=== PATIENT | male | born 1965 | race Caucasian/White ===

== ENCOUNTER 2016-10-03 06:25 | Emergency (ER) | payer OTHER ==
--- NOTE | 2016-10-03 07:01 | DIAGNOSTIC IMAGING REPORT ---
PROCEDURE: CT HEAD WITHOUT CONTRAST INDICATION: VERTIGO/DIZZINESS TECHNIQUE: Noncontrast axial images with sagittal and coronal reformations. COMPARISON: None. FINDINGS: Moderate bilateral temporal lobe atrophy. 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 Normal ventricular system and white matter. No evidence of acute intracranial process. Visualized mastoids and sinuses are clear. IMPRESSION: 1. No acute intracranial abnormality 2. Moderate bilateral temporal lobe atrophy 3. 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 Findings discussed with Dr. Dodd at 06:57 a.m.[facility] Time
--- NOTE | 2016-10-03 07:01 | DIAGNOSTIC IMAGING REPORT ---
PROCEDURE: CT HEAD WITHOUT CONTRAST INDICATION: VERTIGO/DIZZINESS TECHNIQUE: Noncontrast axial images with sagittal and coronal reformations. COMPARISON: None. FINDINGS: Moderate bilateral temporal lobe atrophy. 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 Normal ventricular system and white matter. No evidence of acute intracranial process. Visualized mastoids and sinuses are clear. IMPRESSION: 1. No acute intracranial abnormality 2. Moderate bilateral temporal lobe atrophy 3. 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 Findings discussed with Dr. Dodd at 06:57 a.m.[facility] Time
--- NOTE | 2016-10-03 07:26 | DIAGNOSTIC IMAGING REPORT ---
PROCEDURE: XR CHEST 1 VIEW INDICATION: SHORTNESS OF BREATH TECHNIQUE: Portable AP view 07:03 a.m. COMPARISON: None. FINDINGS: Mild right basilar infiltrate and small right pleural effusion. Small medial right upper lobe infiltrate versus summation artifact. Left lung is clear. Heart size, mediastinum and pulmonary vessels are normal. Thorax is normal. IMPRESSION: 1. Right basilar infiltrate and right pleural effusion 2. Small medial right upper lobe infiltrate versus summation artifact.
--- NOTE | 2016-10-03 09:57 | ED NURSING NOTES ---
Clinical Report - [facility] [address] [place] [address] 10/03/2016 6:27 Patient: RYAN ARNOLD TRIAGE Triage time 06:20 Oct 03 2016. Acuity: LEVEL 3. Chief Complaint: DIZZINESS and LIGHT HEADED. Alert. KATHARINA COMA SCORE: Katharina Coma Scale: 15- eyes open spontaneously (4); best verbal response- oriented x 4 (5); best motor response- obeys commands (6). --06:48 Miguel Danielle R.N. 06:26 10/03/16. BP: 110/90. HR: 120. RR: 18. Temp: 98.3 F (oral). Pain level now: 04/10. 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 --06:48 Miguel Danielle R.N. 06:26 10/03/16. O2 saturation: 99% on room air. --07:13 Miguel Danielle R.N. Weight: 97.5 kg stated. Height/Length: 72 inches Per Patient. BMI: 29.2. --06:47 Miguel Danielle R.N. Medications Dantrolene Sodium Oral (Capsule 25 mg) 1-2 caps, 3-4 times daily (Muscle Spasms). Gabapentin Oral 300 mg, 3x a day. Omeprazole Oral 20 mg. Ranitidine HCl Oral 150 mg, 2x a day. --06:37 Miguel Danielle R.N. Amitriptyline HCl Oral. Psyllium Oral. Topiramate ER Oral. --06:37 Miguel Danielle R.N. Aspirin Oral (Tablet 325 mg) 1 tablet, daily. --06:37 Miguel Danielle R.N. OxyCODONE HCl Oral 5 mg 1/2 tab, 3x a day as needed (stopped this Rx 4 days ago). --06:38 Miguel Danielle R.N. The following entry was struck and corrected by Miguel Danielle R.N., 06:46 (10/03/16) Reason for correction - other(correction). <<STRICKEN ENTRY-- Omeprazole Oral. --06:37 Miguel Danielle R.N. --END STRIKE>> The following entry was struck and corrected by Miguel Danielle R.N., 06:46 (10/03/16) Reason for correction - other(correction). <<STRICKEN ENTRY-- Dantrolene Sodium Oral. --06:37 Miguel Danielle R.N. --END STRIKE>> The following entry was struck and corrected by Miguel Danielle R.N., 06:44 (10/03/16) Reason for correction - other(correction). <<STRICKEN ENTRY-- Ranitidine HCl Oral. --06:37 Miguel Danielle R.N. --END STRIKE>> The following entry was struck and corrected by Miguel Danielle R.N., 06:44 (10/03/16) Reason for correction - other(correction). <<STRICKEN ENTRY-- Aspirin Oral. --06:37 Miguel Danielle R.N. --END STRIKE>> The following entry was struck and corrected by Miguel Danielle R.N., 06:44 (10/03/16) Reason for correction - other(correction). <<STRICKEN ENTRY-- Gabapentin Oral. --06:37 Miguel Danielle R.N. --END STRIKE>>. Medication/allergy information source: the patient. --06:48 Miguel Danielle R.N. Allergies No Known Drug Allergy. --06:39 Miguel Danielle R.N. History Arrived by EMS. Historian: patient. Primary physician (JAIRO). ( Dizziness associated with nausea and diaphoresis. Pt states that he was getting ready for work this AM and stepped out of the shower and symptoms started.). This started just prior to arrival and today. He has had nausea and a headache. PAST MEDICAL HX: Stroke. Immunizations: status is unknown. SOCIAL HX: Light tobacco smoker (cigarette)- less than 1/2 a pack per day. No alcohol use or drug use. No infectious disease exposure. ABUSE ASSESSMENT: No report of abuse. FALL RISK ASSESSMENT: Fall risk assessment completed. No fall risk identified. NUTRITIONAL RISK ASSESSMENT: The nutritional risk assessment revealed no deficiencies. FUNCTIONAL ASSESSMENT: Functional assessment: no impairments noted. LEARNING NEEDS ASSESSMENT: The learning needs assessment revealed no barriers. SKIN INTEGRITY ASSESSMENT: Skin integrity risk assessment completed. No skin integrity risk identified. --06:48 Miguel Danielle R.N. PROBLEMS: Back Pain. --06:43 Miguel Danielle R.N. Gastroesophageal Reflux Disease. --06:52 Miguel Danielle R.N. ADDITIONAL SURGERIES: Back Surgery. --06:43 Miguel Danielle R.N. Cholecystectomy. Fracture Repair. --06:47 Miguel Danielle R.N. Interventions ID band on patient. To treatment room. --06:48 Miguel Danielle R.N. PHYSICAL ASSESSMENT To room via stretcher. GENERAL / NEURO / PSYCH: Oriented X 4. Appears anxious. Alert. Speech within normal limits. HEENT: No facial asymmetry noted. Pupils equal, round and reactive to light. RESPIRATORY: Breath sounds within normal limits. Respirations not labored. CVS: Normal sinus rhythm noted. Capillary refill less than 2 seconds. GI / : Abdomen soft and nontender. SKIN: Skin is warm and dry. --06:49 Miguel Danielle R.N. NURSING PROGRESS NOTES Patient transported to CT by stretcher with tech. ([id number]). --06:41 Miguel Danielle R.N. 06:44 10/03/2016 Site #1 started via IV in the right antecubital space with an 20g angiocath, with aseptic technique and good blood return; one attempt. Blood drawn: rainbow set. Labeled in the presence of the patient and sent to the lab. Saline lock flushed with 10 mL saline. --06:44 Destinee White R.N. Patient gowned. Reassurance given to the patient and patient's family. Patient identifiers checked. Call light placed in reach. Side rails up x 2. Patient ready for evaluation- chart flagged and ED physician notified. --06:50 Miguel Danielle R.N. 06:51 10/03/2016 Zofran (Ondansetron HCl) IVP 4 mg given over 1 minute(s) via site #1. Allergies verified and confirmed 5 rights. IV patency established. IV site checked: no pain, redness, or swelling. IV flushed thoroughly pre- and post-medication administration. IVP given by RN. --06:51 Destinee White R.N. 06:52 10/03/2016 Started bag #1 1000 mL IV Fluids IV NS (Saline); bolus of 250 mL over 15 minute(s) then at 1000 mL/hr over 15 minute(s) via site #1 via IV pump. Allergies verified and confirmed 5 rights. IV patency established. IV site checked: no pain, redness, or swelling. IV flushed thoroughly pre- and post-medication administration. --06:52 Destinee White R.N. EKG time: (06:53). EKG was performed by a tech and shown to the ED physician. --07:12 Breana Vasquez ( Assumed care, report from YUMIKO Rivera. Pt. resting quietly with brother at bedside, awaiting MRI.). --07:19 Any Shi R.N. 07:17 10/03/16. BP: 100/73. HR: 93. O2 saturation: 100%. --07:19 Any Shi R.N. 07:20 10/03/2016 IV Fluids IV NS via IV site #1 Rate Changed: bag #1 decreased to 250 mL/hr via IV pump. --07:20 Any Shi R.N. 07:27 10/03/2016 Valium (Diazepam) IVP 2 mg given over 2 minute(s) via site #1. Allergies verified, confirmed 5 rights and sedative warning given to the patient and patient's family. IV patency established. IV site checked: no pain, redness, or swelling. IV flushed thoroughly pre- and post-medication administration. IVP given by RN. --07:27 Any Shi R.N. 07:27 10/03/2016 Meclizine PO Tablets 50 mg given. Allergies verified, confirmed 5 rights and sedative warning given to the patient. --07:27 Any Shi R.N. 07:32 10/03/2016 Potassium Chloride (Potassium Chloride ER) PO Tablets 10 meq given. Allergies verified and confirmed 5 rights. --07:32 Any Shi R.N. late entry -07:25. Critical value relayed to ED by Lab. Critical value received by Jan CALDERON. (POTASSIUM 2.7 *L mmol/L (3.5-5.1)). ED physician notifed of critical value (POTASSIUM 2.7 *L mmol/L (3.5-5.1)). --07:42 Jan Thompson R.N. late entry - 08:50 Out to MRI. This RN accompanied pt. to MRI for monitoring. --09:35 Any Shi R.N. stacker operator, pulse oximeter and NIBP monitor placed on patient. ( back from MRI, placed back on monitor.). --09:35 Any Shi R.N. 09:35 10/03/16. BP: 108/74. HR: 89. RR: 22. O2 saturation: 99%. --09:36 Any Shi R.N. ( pt reports dizziness is better, but still feels weak). --09:36 Any Shi R.N. 09:39 10/03/2016 Valium (Diazepam) IVP 3 mg given over 2 minute(s) via site #1. IV patency established. IV site checked: no pain, redness, or swelling. IV flushed thoroughly pre- and post-medication administration. IVP given by RN. --10:04 Any Shi R.N. 10:14 10/03/2016 Zithromax PO Tablets 500 mg given. Allergies verified and confirmed 5 rights. --10:24 Any Shi R.N. 10:18 10/03/2016 Started 2 gm of Rocephin (CefTRIAXone Sodium) IVPB in bag #1 50 mL; at 200 mL/hr over 20 minute(s) via site #1 --10:24 Any Shi R.N. 10:28 10/03/2016 IV Fluids IV NS Discontinued: bag #1 discontinued upon discharge. Total amount infused: 800 mL. IV patency established. IV site checked: no pain, redness, or swelling. IV flushed thoroughly. --10:53 Any Shi R.N. 10:38 10/03/2016 Rocephin IVPB Discontinued: bag #1 infused. Total amount infused: 50 mL. --10:38 Micaela Hampton R.N. DISPOSITION / DISCHARGE 10:52 10/03/2016 Site #1 removed upon discharge. Bandaid applied. --10:52 Any Shi R.N. Departure time: 10:52. Condition at departure: stable. No learning barriers present. Discharge instructions provided and reviewed with the patient. Reviewed medication(s) side effects, dosing and course information. Prescription(s) given to the patient. Patient verbalized understanding. Written instructions provided in [place]i. The patient was discharged by the physician. He was discharged home and accompanied by family. He left the Emergency Department ambulatory and via private vehicle. Family member driving. --10:52 Any Shi R.N. 10:51 10/03/16. BP: 111/76. HR: 100. RR: 18. O2 saturation: 100%. Temp: 97.9 F. --10:52 Any Shi R.N. Locked/Released at 10/03/2016 15:13 by Any Shi R.N.
--- NOTE | 2016-10-03 09:57 | ED CLINICAL REPORT ---
Clinical Report - Physicians/Mid Levels [facility] [address] [place] [address] 10/03/2016 6:27 Patient: RYAN ARNOLD Time Seen: 06:28. Arrived- By ambulance. Historian- patient and EMS personnel. HISTORY OF PRESENT ILLNESS Chief Complaint: DIZZINESS. Severity described as severe at its maximum. When seen in the E.D., severity described as moderate. Modifying factors- worsened by turning head and changing position. Relieved by closing eyes and not moving. Described as a sense of rotation and movement and feeling off balance, light-headed and weak all over. Not described as feeling faint or a sense of confusion. This started about 1 hour ago and is still present. It was gradual in onset and has been waxing/waning. The patient has had nausea and vomiting. No hearing loss, tinnitus or ear pain. (Pt states that he was getting ready for work this AM and stepped out of the shower and symptoms started.). Similar symptoms previously: Diagnosis: CVA. Recent medical care: Not recently seen/assessed. REVIEW OF SYSTEMS The patient has had a mild headache. No double vision, weakness, fainting episodes, head injury or chest pain. No palpitations, black stools, numbness, bloody stools or fever. No sore throat, cough, difficulty breathing, abdominal pain or diarrhea. No difficulty with urination, skin rash or joint pain. The patient has had difficulty walking. All systems otherwise negative, except as recorded above. PAST HISTORY A single hemorrhagic stroke possible cerebellar hemorrhage per patient - seen at [facility] - no underlying pathology identified. ( Neurologist: Dr Jarvis). Gastroesophageal reflux. Chronic back pain. Has had back surgery (one operation). Surgeries: Back surgery. Cholecystectomy. Right upper extremity fracture repair (hand). Medications: OxyCODONE HCl Oral 5 mg 1/2 tab, 3x a day as needed (stopped this Rx 4 days ago). Aspirin Oral (Tablet 325 mg) 1 tablet, daily. Amitriptyline HCl Oral. Psyllium Oral. Topiramate ER Oral. Dantrolene Sodium Oral (Capsule 25 mg) 1-2 caps, 3-4 times daily (Muscle Spasms). Gabapentin Oral 300 mg, 3x a day. Omeprazole Oral 20 mg. Ranitidine HCl Oral 150 mg, 2x a day. Allergies: No Known Drug Allergy. SOCIAL HISTORY Smoker- current status unknown. No alcohol use or drug use. Is a local resident. Patient is employed. 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 ADDITIONAL NOTES The nursing notes have been reviewed. PHYSICAL EXAM Vital Signs: 10/03/2016 06:26 BP: 110/90. HR: 120. RR: 18. Temp: 98.3 F. Pain level now: 04/10. Appearance: Alert. Anxious. Odor of alcohol is not present. Speech is not slurred. Eyes: Extraocular movements normal. Mild horizontal nystagmus (fast phase left). Charlene-Hallpike maneuver positive when lying. ENT: Normal ENT inspection. TM's normal. Moist mucous membranes. Pharynx normal. Neck: Normal inspection. Neck supple. No meningeal signs or carotid bruit. CVS: Tachycardia. Heart sounds normal. Pulses normal. Respiratory: No respiratory distress. Breath sounds normal. Abdomen: Soft and nontender. Back: Normal inspection. Skin: Skin warm and dry. Normal skin color. Normal skin turgor. Extremities: Extremities exhibit normal ROM. No calf tenderness. No lower extremity edema. Neuro: Alert. Oriented X 3. Speech normal. No motor deficit. No sensory deficit. Reflex exam: right biceps 2+, left biceps 2+, right patellar 1+, left patellar 1+, right Achilles 1+ and left Achilles 1+. LABS, X-RAYS, AND EKG EKG: EKG time: (06:53). Normal sinus rhythm. Rate: 95. Normal P waves. Normal LIZ. Normal QRS complex. Normal axis. Normal ST and T waves. The study has been interpreted contemporaneously by me. The EKG appears to be a good tracing. Rhythm Strip #1: Normal sinus rhythm. Regular rhythm. Narrow QRS complexes. No ectopy. Chest X-ray: (IMPRESSION: 1. Right basilar infiltrate and right pleural effusion 2. Small medial right upper lobe infiltrate versus summation artifact.). Views: AP (portable). Technique: artifact present. The X-rays were interpreted contemporaneously by me. The X-rays were discussed with the radiologist (via PACS note). CT Head: There is atrophy is present. Head CT performed without contrast. The study was independently viewed by me, interpreted by the radiologist and discussed with the radiologist. MRI Brain: No acute changes. Atrophy present (bilateral temporal lobe, marked). No hemorrhage. No intracranial mass. No midline shift. No hydrocephalus or bony abnormalities. Sinuses normal. Note- Limited study, secondary to pt noncompliance/refusal to complete study. Study type: MRI with and without contrast. Prior studies were not available for comparison. The study was interpreted by the radiologist and discussed with the radiologist. Laboratory Tests: CBC w Diff: (GABRIEL: 10/03/2016 06:40) ( MsgRcvd 10/03/2016 07:04) Final results Test Result Flag Units (Reference) WHITE BLOOD COUNT 9.8 K/uL (4.5-11.5) RED BLOOD COUNT 5.41 M/uL (4.50-5.90) HEMOGLOBIN 15.6 gm/dL (13.5-17.5) HEMATOCRIT 46.5 % (41.0-53.0) MEAN CELL VOLUME 86 fL (80-100) MEAN CORPUSCULAR HGB 29 pg (26-34) MEAN CORPUSCULAR HGB CONC 34 g/dL (31-37) RED CELL DISTRIBUTION WIDTH 15.4 H % (11.6-14.8) PLATELET COUNT 275 K/uL (150-400) NEUTROPHIL % 70.1 % (50-75) LYMPH % 13.9 L % (25-40) MONO % 6.6 % (3-14) EOSINOPHIL % 8.6 H % (0-4) BASOPHIL % 0.8 % (0-2) [id number]: (GABRIEL: 10/03/2016 06:40) ( MsgRcvd 10/03/2016 07:09) Final results Test Result Flag Units (Reference) D-DIMER QUANTITATIVE 1.52 H ug/mLFEU (0.27-0.52) The primary value of this quantitative assay relates toits negative predictive value (i.e. exclusion) of pulmonaryembolism/deep vein thrombosis/DIC.Elevated levels of d-dimer may also occur with:, age, cancer, inflammation, liver disease,post-op, infection, hematoma, coronary disease, peripheralarteriopathy, bleeding disorders and thrombolytic treatment.Results should be correlated with other clinical andradiological data.Testing Methodology: Latex Immunoassay BNP: (GABRIEL: 10/03/2016 06:40) ( MsgRcvd 10/03/2016 07:27) Final results Test Result Flag Units (Reference) B-TYPE NATRIURETIC PEPTIDE < 5.0 L pg/ml (5-100) CHEM 13 PANEL: (GABRIEL: 10/03/2016 06:40) ( MsgRcvd 10/03/2016 07:26) Final results Test Result Flag Units (Reference) GLUCOSE 106 mg/dL (70-110) BUN 7 mg/dL (7-18) CREATININE 1.2 mg/dL (0.6-1.3) Estimated GFR >60 mL/min Estimated GFR- >60 mL/min Note: Persistent reduction over 3 months in eGFR<60 mL/min/1.73 m2 defines CKD. Patients with eGFR values>=60 mL/min/1.73 m2 may also have CKD if evidence ofpersistent proteinuria. Additional information may be foundat [email or web address]. SODIUM 142 mmol/L (136-145) POTASSIUM 2.7 *L mmol/L (3.5-5.1) CRITICAL RESULTS CALLEDCalled to ARIELLE NR 10/03/16 0725Were 2 patient identifiers used? YWas the result read back? Y CHLORIDE 104 mmol/L (98-107) CARBON DIOXIDE 27 mmol/L (21-32) CALCIUM 8.3 L mg/dL (8.5-10.1) TOTAL PROTEIN 7.5 g/dL (6.4-8.2) ALBUMIN 3.1 L g/dL (3.3-5.0) BILIRUBIN, TOTAL 0.7 mg/dL (0.0-1.0) ALKALINE PHOSPHATASE 114 U/L (46-116) AST (SGOT) 10 L U/L (15-37) ALT (SGPT) 10 L U/L (12-78) MAGNESIUM 2.3 mg/dL (1.8-2.4) AMYLASE 44 U/L (25-115) CPK 38 U/L (24-260) TROPONIN I <0.05 L ng/mL (0.00-1.5) TROPONIN REFERENCE RANGE:<0.1 NEGATIVE0.1-1.5 INDETERMINANT>1.5 POSITIVE ETHYL ALCOHOL <3 L mg/dL (3-10) THYROID STIMULATING HORMONE 1.917 uIU/mL (0.34-3.74) . Pulse Oximetry: 10/03/2016 06:26 O2 saturation: 99%. (FIO2 - room air). Interpretation: normal. PROGRESS AND PROCEDURES Course of Care: Valium 2 mg + 3 mg IVP given. Potassium Chloride 40 meq PO given. Zofran 4 mg IVP given. Meclizine 50 mg PO given. 08:23 10/03/16. Patient is stable. The patient's symptoms are now gone. Physical exam findings are improved. Padmaja note: patient was signed out to me pending remainder of workup including MRI of the brain. The patient was feeling better on reevaluation. He was not able to complete the MRI of the brain secondary to being "tired of having all these tests done", and refusing to complete the test. No emergent condition was identified, based on the evaluation that was done. Patient was deemed stable for discharge home at this time. Patient counseled in person regarding the patient's stable condition, test results, diagnosis and need for follow-up. Concerns were addressed. Old medical records ordered. (from [facility] ordered). Disposition: Discharged. Condition: stable and improved. CLINICAL IMPRESSION Acute vertigo of unknown cause. Bronchopneumonia. Vital signs recorded and reviewed; empiric antibiotics given in the ED. No hypoxemia, respiratory failure or sepsis. INSTRUCTIONS (Your studies look good, for the most part. Your MRI was limited, secondary to not finishing the study, but the images of your cerebellum (a part of your brain) looked good. You likely have one of the many other causes of dizziness/vertigo, most of which are benign. Please follow up with your primary doctor and neurologist for this issue, and take the medication for dizziness, as needed. Your chest x-ray, surprisingly, did show an area of inflammation in the bottom of your right lung, which is consistent with pneumonia. You have been started on antibiotics for this in the emergency department, but should follow up with your doctor for this, as well, to be sure the area clears up after your antibiotic course is done.). Your Current Medications: CONTINUE TAKING THE FOLLOWING MEDICATIONS: Amitriptyline HCl Oral. Aspirin Oral : Tablet 325 mg, 1 tablet daily. Dantrolene Sodium Oral : Capsule 25 mg, 1-2 caps 3-4 times daily, Muscle Spasms. Gabapentin Oral : 300 mg 3x a day. Omeprazole Oral : 20 mg. OxyCODONE HCl Oral : 5 mg 1/2 tab 3x a day, prn, stopped this Rx 4 days ago. Psyllium Oral. Ranitidine HCl Oral : 150 mg 2x a day. Topiramate ER Oral. Prescription Medications: Zithromax Z-Shorty: Take according to package instructions 2 orally today, followed by 1 orally every day for the next 4 days. Total course 5 days. No refills. Substitution is permissible. Antivert 25 mg: take 1-2 tablets orally every 8 hours as needed for dizziness. Dispense twenty-five (25). No refill. Substitution is permissible. Follow-up: Follow up with your doctor. Call for the next available appointment. Reason for referral: Follow up ER visit for vertigo, and repeat chest x-ray after pneumonia treatment. Understanding of the discharge instructions verbalized by patient. (Electronically signed by Yasmine Giang MD 10/07/2016 15:37)
--- NOTE | 2016-10-03 09:57 | ED ORDER SUMMARY ---
..... Patient: RYAN ARNOLD OrderSheet [facility] VisitID: [id number] [place] [address] 50y, M Registration Date/Time: 10/03/2016 ORDER SHEET Weight: 97.5 kg (stated) Allergies: No Known Drug Allergy GENERAL ORDERS: Chest 1V Urgent (06:34 10/03/2016 PHutchinson DO) (Ack 7:06 [facility]) Electronic Lab Technician (Continuous) (06:34 10/03/2016 PHutchinson DO) (6:43 JSanders R.N.) CT Head wo Cont Urgent (06:10/03/2016 PHutchinson DO) (6:50 JRomanelli R.N.) UA-Culture if indicated Urgent (06:10/03/2016 PHson DO) [facility] Cardiac Panel Stat (06:35 10/03/2016 PHutchinson DO) (6:50 JRomanelli R.N.) BNP Urgent (06:35 10/03/2016 PHutchinson DO) (6:50 JRomanelli R.N.) D-Dimer Urgent (06:35 10/03/2016 PHutchinson DO) (6:50 JRomanelli R.N.) Amylase Urgent (06:35 10/03/2016 PHutchinson DO) (6:50 JRomanelli R.N.) Urine Drug Screen Urgent (06:10/03/2016 PHutchinson DO) (Ack 7:06 [facility]) TSH Urgent (06:35 10/03/2016 PHutchinson DO) (6:50 JRomanelli R.N.) Ethyl Alcohol Urgent (06:35 10/03/2016 PHutchinson DO) (6:50 JRomanelli R.N.) Pulse oximeter (06:35 10/03/2016 PHutchinson DO) (6:43 JSanders R.N.) EKG - ER Stat (06:35 10/03/2016 PHutchinson DO) (7:02 PWeiler ER Tech1) Vitals (06:35 10/03/2016 PHutchinson DO) (6:43 JSanders R.N.) Old Records (from [facility]) (06:41 10/03/2016 PHchinson DO) (Ack 8:55 Levi) MRI Brain w/wo IACS w/wo Cont (Not Applicable) Urgent (07:10 10/03/2016 PHchinson DO) (Ack 7:47 Levi) US Carotid Doppler Bilat (include vertebrals) Urgent (07:42 10/03/2016 PH DO) (Ack 7:47 Levi) MEDICATION ORDERS: Meclizine PO 50 mg (NOW) (07:03 10/03/2016 PHchinson DO) (Ack 7:20 SStone R.N.) (7:27 SStone R.N.) Potassium Chloride PO 40 meq (NOW) (07:25 10/03/2016 PH DO) (7:32 SStone R.N.) Zithromax PO 500 mg (NOW) (09:58 10/03/2016 Virginia FULTON) (Ack 10:04 SStone R.N.) (10:24 SStone R.N.) IV FLUIDS: IV NS : initial bolus 250 mL (1000 mL/hr), then 250 mL/hr for X3 (NOW) (06:34 10/03/2016 PH DO) (6:52 JESSICAanders R.N.) Zofran IV 4 mg (NOW) (06:34 10/03/2016 PHchinson DO) (6:51 JESSICAanders R.N.) Valium IV 2 mg (NOW) (07:03 10/03/2016 PHchinson DO) (Ack 7:20 SStone R.N.) (7:27 SStone R.N.) Valium IV 3 mg (HIGH ALERT MEDICATION, NOW) (08:33 10/03/2016 PHchinson DO) (Ack 9:02 Tadeo R.N.) (10:04 SStone R.N.) Rocephin IV 2 gm/50mL (NOW) (09:58 10/03/2016 Virginia FULTON) (Ack 10:04 SStone R.N.) (10:24 SStone R.N.) ORDER SHEET NOTES: [Electronically signed by Any Shi R.N. (15:13 10/03/2016)] [Electronically signed by Yasmine Giang MD (15:37 10/07/2016)] [Electronically locked/signed by Any Shi R.N. (15:13 10/03/2016)]
--- NOTE | 2016-10-03 09:57 | ED ORDER SUMMARY ---
..... Patient: RYAN ARNOLD OrderSheet [facility] VisitID: [id number] [place] [address] 50y, M Registration Date/Time: 10/03/2016 ORDER SHEET Weight: 97.5 kg (stated) Allergies: No Known Drug Allergy GENERAL ORDERS: Chest 1V Urgent (06:34 10/03/2016 PHutchinson DO) (Ack 7:06 [facility]) Nick Setter (Continuous) (06:34 10/03/2016 PHutchinson DO) (6:43 JSanders R.N.) CT Head wo Cont Urgent (06:10/03/2016 PHutchinson DO) (6:50 JRomanelli R.N.) UA-Culture if indicated Urgent (06:10/03/2016 PHson DO) ([facility]ck 7:06 [facility] Cardiac Panel Stat (06:35 10/03/2016 PHutchinson DO) (6:50 JRomanelli R.N.) BNP Urgent (06:35 10/03/2016 PHutchinson DO) (6:50 JRomanelli R.N.) D-Dimer Urgent (06:35 10/03/2016 PHutchinson DO) (6:50 JRomanelli R.N.) Amylase Urgent (06:35 10/03/2016 PHutchinson DO) (6:50 JRomanelli R.N.) Urine Drug Screen Urgent (06:10/03/2016 PHutchinson DO) (Ack 7:06 [facility]) TSH Urgent (06:35 10/03/2016 PHutchinson DO) (6:50 JRomanelli R.N.) Ethyl Alcohol Urgent (06:35 10/03/2016 PHutchinson DO) (6:50 JRomanelli R.N.) Pulse oximeter (06:35 10/03/2016 PHutchinson DO) (6:43 JSanders R.N.) EKG - ER Stat (06:35 10/03/2016 PHutchinson DO) (7:02 PWeiler ER Tech1) Vitals (06:35 10/03/2016 PHutchinson DO) (6:43 JSanders R.N.) Old Records (from [facility]) (06:41 10/03/2016 PHchinson DO) (Ack 8:55 Levi) MRI Brain w/wo IACS w/wo Cont (Not Applicable) Urgent (07:10 10/03/2016 PHchinson DO) (Ack 7:47 Levi) US Carotid Doppler Bilat (include vertebrals) Urgent (07:42 10/03/2016 PH DO) (Ack 7:47 Levi) MEDICATION ORDERS: Meclizine PO 50 mg (NOW) (07:03 10/03/2016 PHchinson DO) (Ack 7:20 SStone R.N.) (7:27 SStone R.N.) Potassium Chloride PO 40 meq (NOW) (07:25 10/03/2016 PH DO) (7:32 SStone R.N.) Zithromax PO 500 mg (NOW) (09:58 10/03/2016 Virginia FULTON) (Ack 10:04 SStone R.N.) (10:24 SStone R.N.) IV FLUIDS: IV NS : initial bolus 250 mL (1000 mL/hr), then 250 mL/hr for X3 (NOW) (06:34 10/03/2016 PH DO) (6:52 JESSICAanders R.N.) Zofran IV 4 mg (NOW) (06:34 10/03/2016 PHchinson DO) (6:51 JESSICAanders R.N.) Valium IV 2 mg (NOW) (07:03 10/03/2016 PHchinson DO) (Ack 7:20 SStone R.N.) (7:27 SStone R.N.) Valium IV 3 mg (HIGH ALERT MEDICATION, NOW) (08:33 10/03/2016 PHchinson DO) (Ack 9:02 Tadeo R.N.) (10:04 SStone R.N.) Rocephin IV 2 gm/50mL (NOW) (09:58 10/03/2016 Virginia FULTON) (Ack 10:04 SStone R.N.) (10:24 SStone R.N.) ORDER SHEET NOTES: [Electronically signed by Any Shi R.N. (15:13 10/03/2016)] [Electronically signed by Yasmine Giang MD (15:37 10/07/2016)] [Electronically locked/signed by Any Shi R.N. (15:13 10/03/2016)]
--- NOTE | 2016-10-03 10:35 | DIAGNOSTIC IMAGING REPORT ---
PROCEDURE: MR BRAIN W/WO CONTRAST INDICATION: VERTIGO/DIZZINESS TECHNIQUE: Noncontrast T1 sagittal and T2 coronal images of the brain. T2, FLAIR, gradient, Fiesta and diffusion axial images with ADC map. Pregadolinium thin-cut T1 sagittal and coronal images of the pituitary fossa. Following 10 ml of intravenous gadolinium, FAT-SAT T1 axial images of the brain were obtained. The patient refused additional postcontrast multiplanar imaging. COMPARISON: Head CT 10/03/2016. FINDINGS: Severe bilateral temporal lobe atrophy. Prominent cortical sulci. Minor chronic ischemic changes of the mechelle and white matter. There is no evidence of an acute CVA, hemorrhage, mass or abnormal enhancement. Cerebellopontine angles are unremarkable. Normal vascular flow voids. Normal orbits. Mastoids and sinuses are clear. IMPRESSION: 1. No acute intracranial abnormality 2. Severe bilateral temporal lobe atrophy 2. Minor chronic ischemic changes of the mechelle and white matter.
--- NOTE | 2016-10-03 10:54 | DIAGNOSTIC IMAGING REPORT ---
PROCEDURE: US BILATERAL CAROTID DOPPLER INDICATION: DIZZINESS TECHNIQUE: Color Doppler duplex imaging of the carotid and vertebral vessels. COMPARISON: None. FINDINGS: Right carotid system: No significant stenosis visualized. The waveforms are normal. Left carotid system: No significant stenosis visualized. The waveforms are normal. Vertebral System: Antegrade vertebral artery flow bilaterally. Right common carotid artery peak systolic velocity 50 cm/second. Right internal carotid artery peak systolic velocity 72 cm/second. Right external carotid artery peak systolic velocity 41 cm/second. Right mhhjagnp-bd-eppuni carotid artery ratio 1.4 Right vertebral artery peak systolic velocity 39 cm/second. Left common carotid artery peak systolic velocity 51 cm/second. Left internal carotid artery peak systolic velocity 74 cm/second. Left external carotid artery peak systolic velocity 44 cm/second. Left fjsyftbz-qm-jzxich carotid artery ratio 1.5 Left vertebral artery peak systolic velocity 37 cm/second. IMPRESSION: 1. No significant stenosis or plaque in either carotid system. 2. Antegrade vertebral artery flow bilaterally. Velocity criteria are extrapolated from diameter data as defined by the Society of Radiologists in Ultrasound Consensus Conference, Radiology 2003; 229; 340-346.
--- NOTE | 2016-10-03 10:54 | DIAGNOSTIC IMAGING REPORT ---
PROCEDURE: US BILATERAL CAROTID DOPPLER INDICATION: DIZZINESS TECHNIQUE: Color Doppler duplex imaging of the carotid and vertebral vessels. COMPARISON: None. FINDINGS: Right carotid system: No significant stenosis visualized. The waveforms are normal. Left carotid system: No significant stenosis visualized. The waveforms are normal. Vertebral System: Antegrade vertebral artery flow bilaterally. Right common carotid artery peak systolic velocity 50 cm/second. Right internal carotid artery peak systolic velocity 72 cm/second. Right external carotid artery peak systolic velocity 41 cm/second. Right tacelkhk-wx-lnruul carotid artery ratio 1.4 Right vertebral artery peak systolic velocity 39 cm/second. Left common carotid artery peak systolic velocity 51 cm/second. Left internal carotid artery peak systolic velocity 74 cm/second. Left external carotid artery peak systolic velocity 44 cm/second. Left oybnxiek-hn-fthnev carotid artery ratio 1.5 Left vertebral artery peak systolic velocity 37 cm/second. IMPRESSION: 1. No significant stenosis or plaque in either carotid system. 2. Antegrade vertebral artery flow bilaterally. Velocity criteria are extrapolated from diameter data as defined by the Society of Radiologists in Ultrasound Consensus Conference, Radiology 2003; 229; 340-346.
--- NOTE | 2016-10-07 15:38 | ED MAR SUMMARY ---
..... Medication Administration Record [facility] [address] [place] [address] Patient: RYAN ARNOLD Visit ID: [id number] 50y, M Weight: 97.5 kg Height/Length: 72 in BMI: 29.2 ALLERGIES: No Known Drug Allergy Given 06:51 10/03/2016 Destinee White R.N. Medication Administered: ZOFRAN [IVP] (ONDANSETRON HCL), Dose: 4 mg IVP over 1 minute(s), Site: #1 right AC. Medication Ordered: Zofran IV 4 mg (NOW). Start 06:52 10/03/2016 Destinee White R.N., Stop 10:28 10/03/2016 Any Shi R.N. Medication Administered: IV NS (SALINE), Dose: IV Fluids over 15 minute(s), Rate: 1000 mL/hr, Bolus: 250 mL over 15 minute(s), Dispensed: 1000 mL bag, Site: #1 right AC. Medication Ordered: IV NS : initial bolus 250 mL (1000 mL/hr), then 250 mL/hr for X3 (NOW). Given 07:27 10/03/2016 Any Shi R.N. Medication Administered: VALIUM [IVP] (DIAZEPAM), Dose: 2 mg IVP over 2 minute(s), Site: #1 right AC. Medication Ordered: Valium IV 2 mg (NOW). Given 07:27 10/03/2016 Any Shi R.N. Medication Administered: MECLIZINE [PO], Dose: 50 mg Tablets PO. Medication Ordered: Meclizine PO 50 mg (NOW). Given 07:32 10/03/2016 Any Shi R.N. Medication Administered: POTASSIUM CHLORIDE [PO] (POTASSIUM CHLORIDE ER), Dose: 10 meq Tablets PO. Medication Ordered: Potassium Chloride PO 40 meq (NOW). Given 09:39 10/03/2016 Any Shi R.N. Medication Administered: VALIUM [IVP] (DIAZEPAM), Dose: 3 mg IVP over 2 minute(s), Site: #1 right AC. Medication Ordered: Valium IV 3 mg (HIGH ALERT MEDICATION, NOW). Given 10:14 10/03/2016 Any Shi R.N. Medication Administered: ZITHROMAX [PO], Dose: 500 mg Tablets PO. Medication Ordered: Zithromax PO 500 mg (NOW). Start 10:18 10/03/2016 Any Shi R.N., Stop 10:38 10/03/2016 Micaela Hampton R.N. Medication Administered: ROCEPHIN [IVPB] (CEFTRIAXONE SODIUM), Dose: 2 gm IVPB over 20 minute(s), Rate: 200 mL/hr, Dispensed: 50 mL bag, Site: #1 right AC. Medication Ordered: Rocephin IV 2 gm/50mL (NOW).
--- NOTE | 2016-10-07 15:38 | ED MAR SUMMARY ---
..... Medication Administration Record [facility] [address] [place] [address] Patient: RYAN ARNOLD Visit ID: [id number] 50y, M Weight: 97.5 kg Height/Length: 72 in BMI: 29.2 ALLERGIES: No Known Drug Allergy Given 06:51 10/03/2016 Destinee White R.N. Medication Administered: ZOFRAN [IVP] (ONDANSETRON HCL), Dose: 4 mg IVP over 1 minute(s), Site: #1 right AC. Medication Ordered: Zofran IV 4 mg (NOW). Start 06:52 10/03/2016 Destinee White R.N., Stop 10:28 10/03/2016 Any Shi R.N. Medication Administered: IV NS (SALINE), Dose: IV Fluids over 15 minute(s), Rate: 1000 mL/hr, Bolus: 250 mL over 15 minute(s), Dispensed: 1000 mL bag, Site: #1 right AC. Medication Ordered: IV NS : initial bolus 250 mL (1000 mL/hr), then 250 mL/hr for X3 (NOW). Given 07:27 10/03/2016 Any Shi R.N. Medication Administered: VALIUM [IVP] (DIAZEPAM), Dose: 2 mg IVP over 2 minute(s), Site: #1 right AC. Medication Ordered: Valium IV 2 mg (NOW). Given 07:27 10/03/2016 Any Shi R.N. Medication Administered: MECLIZINE [PO], Dose: 50 mg Tablets PO. Medication Ordered: Meclizine PO 50 mg (NOW). Given 07:32 10/03/2016 Any Shi R.N. Medication Administered: POTASSIUM CHLORIDE [PO] (POTASSIUM CHLORIDE ER), Dose: 10 meq Tablets PO. Medication Ordered: Potassium Chloride PO 40 meq (NOW). Given 09:39 10/03/2016 Any Shi R.N. Medication Administered: VALIUM [IVP] (DIAZEPAM), Dose: 3 mg IVP over 2 minute(s), Site: #1 right AC. Medication Ordered: Valium IV 3 mg (HIGH ALERT MEDICATION, NOW). Given 10:14 10/03/2016 Any Shi R.N. Medication Administered: ZITHROMAX [PO], Dose: 500 mg Tablets PO. Medication Ordered: Zithromax PO 500 mg (NOW). Start 10:18 10/03/2016 Any Shi R.N., Stop 10:38 10/03/2016 Micaela Hampton R.N. Medication Administered: ROCEPHIN [IVPB] (CEFTRIAXONE SODIUM), Dose: 2 gm IVPB over 20 minute(s), Rate: 200 mL/hr, Dispensed: 50 mL bag, Site: #1 right AC. Medication Ordered: Rocephin IV 2 gm/50mL (NOW).
--- NOTE | 2016-10-07 15:38 | ED DISCHARGE INSTRUCTIONS ---
Patient: RYAN ARNOLD General Instructions [facility] VisitID: [id number] [place] [address] 50y, M Registration Date/Time: 10/03/2016 Acute vertigo of unknown cause. Bronchopneumonia. Vital signs recorded and reviewed; empiric antibiotics given in the ED. No hypoxemia, respiratory failure or sepsis. INSTRUCTIONS (Your studies look good, for the most part. Your MRI was limited, secondary to not finishing the study, but the images of your cerebellum (a part of your brain) looked good. You likely have one of the many other causes of dizziness/vertigo, most of which are benign. Please follow up with your primary doctor and neurologist for this issue, and take the medication for dizziness, as needed. Your chest x-ray, surprisingly, did show an area of inflammation in the bottom of your right lung, which is consistent with pneumonia. You have been started on antibiotics for this in the emergency department, but should follow up with your doctor for this, as well, to be sure the area clears up after your antibiotic course is done.). Your Current Medications: CONTINUE TAKING THE FOLLOWING MEDICATIONS: Amitriptyline HCl Oral. Aspirin Oral : Tablet 325 mg, 1 tablet daily. Dantrolene Sodium Oral : Capsule 25 mg, 1-2 caps 3-4 times daily, Muscle Spasms. Gabapentin Oral : 300 mg 3x a day. Omeprazole Oral : 20 mg. OxyCODONE HCl Oral : 5 mg 1/2 tab 3x a day, prn, stopped this Rx 4 days ago. Psyllium Oral. Ranitidine HCl Oral : 150 mg 2x a day. Topiramate ER Oral. Prescription Medications: Zithromax Z-Shorty: Take according to package instructions 2 orally today, followed by 1 orally every day for the next 4 days. Total course 5 days. No refills. Substitution is permissible. Antivert 25 mg: take 1-2 tablets orally every 8 hours as needed for dizziness. Dispense twenty-five (25). No refill. Substitution is permissible. Follow-up: Follow up with your doctor. Call for the next available appointment. Reason for referral: Follow up ER visit for vertigo, and repeat chest x-ray after pneumonia treatment. Understanding of the discharge instructions verbalized by patient. ADDITIONAL INFORMATION Vertigo [Unknown Cause] The "inner ear" is located behind the middle ear. It is part of the balance center of your body. Disease of the inner ear causes vertigo -- a false feeling of motion. It feels as if you or the room is spinning. A vertigo attack may cause sudden nausea, vomiting and heavy sweating. Severe vertigo causes a loss of balance and can cause you to fall. During vertigo, small head movements and changes in body position will often make the symptoms worse. The causes of vertigo include: Inflammation of the inner ear Disease of the nerves to the inner ear Movement of calcium particles in the inner ear Poor blood flow to the balance centers of the brain An episode of vertigo may last seconds, minutes or hours. Once you are over the first episode, it may never return. However, sometimes symptoms may recur off and on over several weeks or longer, depending on the cause. There may be ringing in the ears or hearing loss, which may be temporary or permanent. Home Care: If symptoms are severe, rest quietly in bed. Change positions very slowly. There is usually one position that will feel best, such as lying on one side or lying on your back with your head slightly raised on pillows. Do not drive or work with dangerous machinery for one week after symptoms go away, in case the symptoms suddenly return. Take medicine as prescribed to relieve your symptoms. Unless another medicine was prescribed for nausea, vomiting and vertigo, you may use bgln-dbh-isqdjly motion sickness pills, such as meclizine (Bonine, Bonamine, Antivert) or dimenhydrinate (Dramamine). Follow Up with your doctor or as directed by our staff. Tell the doctor if your ears keep ringing, or if your hearing does not return to normal. Get Prompt Medical Attention if any of the following occur: Vertigo gets worse and is not controlled by medicine prescribed Repeated vomiting not relieved by medicine prescribed Increased weakness or fainting Severe headache or unusually drowsy or confused Weakness of an arm or leg or one side of the face Difficulty with speech or vision Pneumonia (Adult) Pneumonia is an infection deep within the lung, in the small air sacs (alveoli). It may be due to a virus or bacteria and is usually treated with an antibiotic. Severe cases require treatment in the hospital. Milder cases can be treated at home. Symptoms usually start to improve during the first2 days of treatment. Home Care: Rest at home for the first 23 days or until you feel stronger. When resuming activity, dont let yourself become overly tired. Avoid exposure to cigarette smoke (yours or others). You may use acetaminophen (Tylenol) or ibuprofen (Motrin, Advil) to control fever or pain, unless another medicine was prescribed. [NOTE: If you have chronic liver or kidney disease or ever had a stomach ulcer or GI bleeding, talk with your doctor before using these medicines.] (Aspirin should never be used in anyone under 18 years of age who is ill with a fever. It may cause severe liver damage.) Your appetite may be poor so a light diet is fine. Keep well hydrated by drinking 68 glasses of fluids per day (water, sport drinks such as Gatorade, sodas without caffeine, juices, tea, soup, etc.). This will help loosen secretions in the lung, making it easier for you to cough up the phlegm (sputum). If you also have heart or kidney disease, check with your doctor before you drink extra amounts of fluids. Finish all antibiotic medicine prescribed, even if you are feeling better after a few days. Follow Up with your doctor in the next 23 days (or as advised) to be sure you are responding properly to the medicine. [NOTE: If you are age 65 or older, or if you have chronic lung disease (asthma, emphysema or COPD), we recommendthe pneumococcal vaccination and a yearlyinfluenzavaccination(flu-shot) every . Ask your doctor about this.] Get Prompt Medical Attention if any of the following occur: Not getting better within the first 48 hours of treatment Increasing shortness of breath or rapid breathing (over 25 breaths/minute) Coughing up blood or increasing chest pain with breathing Fever of 100.4F (38C) oral or higher, not better with fever medication Increasing weakness, dizziness or fainting Increasing thirst or dry mouth Sinus pain, headache or a stiff neck Chest pain not caused by coughing You have been given the following additional information: Vertigo, Unspecified Pneumonia (Adult) (Electronically signed by Yasmine Giang MD 10/07/2016 15:37)
--- NOTE | 2016-10-07 15:38 | ED MED RECONCILIATION SUMMARY ---
Patient: RYAN ARNOLD Medication Reconciliation Report [facility] VisitID: [id number] [place] [address] 50y, M Registration Date/Time: 10/03/2016 Weight: 97.5 kg Height/Length: 72 in. BMI: 29.2 ALLERGIES: No Known Drug Allergy The patient's Home Medications are listed below: CONTINUE TAKING THE FOLLOWING MEDICATIONS: Amitriptyline HCl Oral Aspirin Oral (325 mg) 1 tablet, daily Dantrolene Sodium Oral (25 mg) 1-2 caps, 3-4 times daily, Muscle Spasms Gabapentin Oral 300 mg, 3x a day Omeprazole Oral 20 mg OxyCODONE HCl Oral 5 mg 1/2 tab, 3x a day, stopped this Rx 4 days ago Psyllium Oral Ranitidine HCl Oral 150 mg, 2x a day Topiramate ER Oral The source(s) of the original Home Medication information: patient The following Medications were given to the patient in the Emergency Department: Zofran [IVP] IVP 4 mg, administered: 10/03/2016 6:51:00 AM IV NS IV Fluids bolus 250 mL over 15 minute(s), then 1000 mL/hr, administered: 10/03/2016 6:52:00 AM Valium [IVP] IVP 2 mg, administered: 10/03/2016 7:27:00 AM Meclizine [PO] PO 50 mg, administered: 10/03/2016 7:27:00 AM Potassium Chloride [PO] PO 10 meq, administered: 10/03/2016 7:32:00 AM Valium [IVP] IVP 3 mg, administered: 10/03/2016 9:39:00 AM Rocephin [IVPB] IVPB bolus 0, then 2 gm 200 mL/hr, administered: 10/03/2016 10:18:00 AM Zithromax [PO] PO 500 mg, administered: 10/03/2016 10:14:00 AM The following Medications were prescribed to the patient: Zithromax Z-Shoryt: Take according to package instructions 2 orally today, followed by 1 orally every day for the next 4 days. Total course 5 days. No refills. Substitution is permissible. -- Yasmine Giang MD Antivert 25 mg: take 1-2 tablets orally every 8 hours as needed for dizziness. Dispense twenty-five (25). No refill. Substitution is permissible. -- Yasmine Giang MD
--- NOTE | 2016-10-07 15:38 | ED MED RECONCILIATION SUMMARY ---
Patient: RYAN ARNOLD Medication Reconciliation Report [facility] VisitID: [id number] [place] [address] 50y, M Registration Date/Time: 10/03/2016 Weight: 97.5 kg Height/Length: 72 in. BMI: 29.2 ALLERGIES: No Known Drug Allergy The patient's Home Medications are listed below: CONTINUE TAKING THE FOLLOWING MEDICATIONS: Amitriptyline HCl Oral Aspirin Oral (325 mg) 1 tablet, daily Dantrolene Sodium Oral (25 mg) 1-2 caps, 3-4 times daily, Muscle Spasms Gabapentin Oral 300 mg, 3x a day Omeprazole Oral 20 mg OxyCODONE HCl Oral 5 mg 1/2 tab, 3x a day, stopped this Rx 4 days ago Psyllium Oral Ranitidine HCl Oral 150 mg, 2x a day Topiramate ER Oral The source(s) of the original Home Medication information: patient The following Medications were given to the patient in the Emergency Department: Zofran [IVP] IVP 4 mg, administered: 10/03/2016 6:51:00 AM IV NS IV Fluids bolus 250 mL over 15 minute(s), then 1000 mL/hr, administered: 10/03/2016 6:52:00 AM Valium [IVP] IVP 2 mg, administered: 10/03/2016 7:27:00 AM Meclizine [PO] PO 50 mg, administered: 10/03/2016 7:27:00 AM Potassium Chloride [PO] PO 10 meq, administered: 10/03/2016 7:32:00 AM Valium [IVP] IVP 3 mg, administered: 10/03/2016 9:39:00 AM Rocephin [IVPB] IVPB bolus 0, then 2 gm 200 mL/hr, administered: 10/03/2016 10:18:00 AM Zithromax [PO] PO 500 mg, administered: 10/03/2016 10:14:00 AM The following Medications were prescribed to the patient: Zithromax Z-Shorty: Take according to package instructions 2 orally today, followed by 1 orally every day for the next 4 days. Total course 5 days. No refills. Substitution is permissible. -- Yasmine Giang MD Antivert 25 mg: take 1-2 tablets orally every 8 hours as needed for dizziness. Dispense twenty-five (25). No refill. Substitution is permissible. -- Yasmine Giang MD
== END 2016-10-03 10:55 | disposition home or self-care (01) ==
LOC: ED SRH 06:25
DX: R42 Dizziness and giddiness (principal); J18.0 Bronchopneumonia, unspecified organism; Z86.73 Personal history of transient ischemic attack (TIA), and cerebral infarction without residual deficits; Z79.891 Long term (current) use of opiate analgesic; Z79.82 Long term (current) use of aspirin; Z79.899 Other long term (current) drug therapy